=== PATIENT | female | born 1995 | race Caucasian/White ===

== ENCOUNTER 2021-08-09 19:14 | Emergency (ER) | payer OTHER ==
[~2021-08-09] VITALS: Ht 170.2 cm; Wt 127.0 kg
[2021-08-09] MEDS ORDERED: METFORMIN HCL500 M2 PO (19:28)
[2021-08-09] MEDS ORDERED: SEROQUEL 25 MG25 MG PO (19:28)
[2021-08-09] MEDS ORDERED: EFFEXOR XR150 MG PO (19:29)
[2021-08-09] MEDS ORDERED: NORCO5 PO ×2 (19:43→19:53)
[2021-08-09] MEDS ORDERED: FLEXERIL PO (19:43)
== END 2021-08-09 20:07 | disposition home or self-care (01) ==
LOC: M.ERS 19:14
DX: M54.59 Other low back pain (principal); E11.9 Type 2 diabetes mellitus without complications; M19.90 Unspecified osteoarthritis, unspecified site; F32.9 Major depressive disorder, single episode, unspecified; Z79.899 Other long term (current) drug therapy; Z88.1 Allergy status to other antibiotic agents; Z88.6 Allergy status to analgesic agent